=== PATIENT | female | born 1985 | race Caucasian/White ===

== ENCOUNTER 2023-05-01 10:54 | Emergency (ER) | payer SELFPAY ==
[~2023-05-01] VITALS: Ht 154.9 cm; Wt 50.0 kg
[2023-05-01 11:34] VITALS: TEMP 98.6
[2023-05-01] MEDS ORDERED: NS 1,000 ML IV ONE (13:45)
[2023-05-01] MEDS ORDERED: Ketorolac 30 MG/ML VIAL IV ONE (13:45)
[2023-05-01 14:18] LABS: URINE APPEARANCE CLEAR (CLEAR/HAZY); URINE BLOOD NEGATIVE (NEGATIVE); URINE COLOR YELLOW (YELLOW); URINE GLUCOSE NEGATIVE (NEGATIVE); URINE KETONE TRACE (NEGATIVE); URINE NITRATE NEGATIVE (NEGATIVE); URINE PROTEIN(semi-quant) NEGATIVE (NEGATIVE); URINE UROBILINOGEN 0.2 E.U/dL (0.2-1.0)
[2023-05-01 14:27] LABS: COLLECTION METHOD CLEAN CATCH
[2023-05-01 15:25] VITALS: BP 98/61; PULSE 93
== END 2023-05-01 15:25 | disposition home or self-care (01) ==
LOC: COL.ER 10:54
PROVIDERS: Physician Assistant
DX: J10.1 Influenza due to other identified influenza virus with other respiratory manifestations (principal)
CPT/HCPCS: J1885; J7030